=== PATIENT | male | born 1965 | race Caucasian/White ===

== ENCOUNTER 2017-10-06 07:14 | Day surgery (SDC) | payer BC ==
[2017-10-06] MEDS ORDERED: Lactated Ringers 1,000 ML IV SCH (07:15)
[2017-10-06] MEDS ORDERED: Propofol 200 MG/20 ML SDV IV ONE (08:30)
[2017-10-06] MEDS ORDERED: Midazolam 1 MG/ML 2 ML SDV IV ONE (08:30)
--- NOTE | 2017-10-06 09:11 | PCM.OPNOTE ---
- General Post-Op/Procedure Note Date of Surgery/Procedure: 10/06/17 Operative Procedure(s): c scope with bx Findings: sigmoid polyps x2 Pre Op Diagnosis: colon cancer screening Post-Op Diagnosis: sigmoid colon polyp x2. scattered diverticuli Anesthesia Technique: MAC Primary Surgeon: Velasquez Courtney Anesthesia Provider: Nicolas Ji Pathology: sigmoid polyp x2 Complications: None Condition: Good Free Text/Narrative:: see dictation
--- NOTE | 2017-10-06 10:08 | OR ---
DATE OF OPERATION: 10/06/2017 SURGEON: Velasquez Courtney MD PROCEDURES PERFORMED: Colonoscopy with cold forceps biopsy. PREOPERATIVE DIAGNOSIS: Family history of colon polyps. POSTOPERATIVE DIAGNOSIS: Sigmoid polyps x2. INDICATIONS FOR PROCEDURE: This is a 52-year-old white male who presents for his initial screening colonoscopy. He was offered and accepted same. DESCRIPTION OF OPERATION: After an excellent IV sedation was administered, digital rectal exam was performed. No marked abnormality was noted. The flexible colonoscope was inserted and advanced to the cecum without difficulty. The following findings were noted. Ascending colon, unremarkable, except for scattered diverticula. Transverse colon, unremarkable. Descending colon, unremarkable. Sigmoid, several small hyperplastic-appearing polyps, biopsied with cold biopsy forceps and some scattered diverticula. Rectum unremarkable. Colon was deflated. The scope was removed. The patient tolerated the procedure well and was taken to Recovery in a good condition. Results by letter. /[id number] 1002 /MARSHAL
--- OUTSIDE RECORDS SUMMARY | 2017-10-11 15:39 | XMSREPORT | Summary of Care ---
:1965 Author Organization [facility] Address [address] [place] [address] Phone Care Team Providers Name Role Phone Jose Angel Larsen MD Primary Care Provider Jose Angel Larsen MD Attributed Provider Reason for Referral Transitions of Care (Routine) Status Reason Specialty Diagnoses / Referred By Referred To Procedures Contact Contact Pending Review Service Not Diagnoses Screening for colon cancer Earline Larsen, [facility] Available at MD [facility] [address] [place], [place] [id number] [place] Phone: [place] [phone] [place] [address] Fax: Encounter Details Date Type Department Care Team Description 09/29/2017 Telephone [facility] Jose Angel Larsen MD CLINIC [address] [place] [address] [place] [address] [phone] Allergies No Known Allergiesas of this encounter Medications Prescription Sig. Disp. Refills Start Date End Date Status aspirin 81 mg enteric Take 1 tablet (81 30 tablet 0 09/01/2015 Active coated tablet mg total) by mouth 1 time per day electrolyte-polyethylen Use per colon 1 Bottle 0 09/15/2017 Active e glycol (GOLYTELY, prep sheet COLYTE) oral solutionIndications: Screening for colon cancer as of this encounter Active Problems No known active problemsas of this encounter Immunizations Name Dates Previously Given Next Due TDAP 08/18/2017 Td 09/24/1996 as of this encounter Social History Tobacco Use Types Packs/Day Years Used Date Never Smoker Smokeless Tobacco: Never Used Alcohol Use Drinks/Week oz/Week Comments Yes 1 Cans of beer 0.6 Sex Assigned at Date Recorded Not on file as of this encounter Last Filed Vital Signs Not on filein this encounter Functional Status Functional Status Response Date of Assessment Do you have difficulty with walking, balance, climbing No 09/01/2015 stairs, or had a fall in the last 3 months? as of this encounter Plan of Treatment Name Priority Associated Diagnoses Order Schedule CLINIC REFERRAL GENERAL Routine Screening for colon cancer Ordered: 2017 SURGERY NON ONE CHART Health Maintenance Due Date Last Done Comments HIV One Time Screening Ages 1980 15-65 Lipid Screening 2006 Diabetes Screening 2011 Colorectal Cancer Screening 01/12/2016 Zoster Vaccine (1 of 2 - 01/12/2016 RZV, Shingrix) Influenza Vaccine (#1) 2018 Postponed from 03/19/2017 (Patient Refused) Tetanus Vaccine 08/19/2027 08/18/2017, 09/24/1996 as of this encounter Results Not on filein this encounter Visit Diagnoses Diagnosis Screening for colon cancer - Primary Special screening for malignant neoplasms, colon in this encounter
== END 2017-10-06 09:56 | disposition home or self-care (01) ==
LOC: FB.SDS 07:14
PROVIDERS: ATTEND Surgery
DX: Z12.11 Encounter for screening for malignant neoplasm of colon (principal); D12.5 Benign neoplasm of sigmoid colon; K63.5 Polyp of colon; K57.30 Diverticulosis of large intestine without perforation or abscess without bleeding; Z80.0 Family history of malignant neoplasm of digestive organs; Z79.82 Long term (current) use of aspirin
CPT/HCPCS: 45380; 88305; J2250; J2704; J7120